=== PATIENT | female | born 1950 | race Caucasian/White ===

== ENCOUNTER → 2016-09-18 | Outpatient (CLI) | payer MEDICARE, OTHER ==
[~2016-09-18] MED LIST: ALEVE220 M1 PO; ASPIRIN CHEWABL81 MG PO; CALCIUM + VITA1 EACH PO; ELIQUIS5 MG PO; LEVAQUIN500 MG PO; LIPITOR TAB 2020 MG PO; LISINOPRIL2.5 MG PO; LOPRESSOR 25 MG25 MG PO; MULTAQ400 MG PO; MULTIVITAMINS1 EAC1 PO; SYNTHROID25 MCG PO; TYLENOL W/CODEIN1 E1 PO; ZOLOFT100 MG PO
== END ==
LOC: CARD REHAB 14:00
DX: Z48.812 Encounter for surgical aftercare following surgery on the circulatory system (principal)

== ENCOUNTER → 2016-09-19 | Outpatient (CLI) | payer MEDICARE, OTHER | LOC: HEART 5 09:04 | DX: Z79.899 Other long term (current) drug therapy (principal) | CPT/HCPCS: 94010; 94729 ==

== ENCOUNTER → 2016-11-23 | Outpatient (CLI) | payer MEDICARE, OTHER | LOC: RAD 15:53 | DX: M25.552 Pain in left hip (principal); M89.8X5 Other specified disorders of bone, thigh | CPT/HCPCS: 73502; 73552 ==

== ENCOUNTER → 2020-09-01 | Outpatient (CLI) | payer MEDICARE, OTHER ==
[~2020-09-01] MED LIST changes: +CEFDINIR300 MG PO; +CELEBREX200 MG PO; +CORDARONE 200M200 MG PO; +ECOTRIN81 MG PO; +ELIQUIS 5 MG TAB5 MG PO; +FLEXERIL 10 MG10 MG PO; +GLUCOPHAGE500 MG PO; +LOPRESSOR50 MG PO; +MICROZIDE12.5 MG PO; +PRINIVIL20 MG PO; +SYNTHROID75 MCG PO
== END ==
LOC: EXRD 13:54
DX: R22.1 Localized swelling, mass and lump, neck (principal)
CPT/HCPCS: 76536

== ENCOUNTER → 2020-09-16 | Outpatient (CLI) | payer MEDICARE, OTHER | LOC: CT 08:04 | DX: R22.1 Localized swelling, mass and lump, neck (principal) | CPT/HCPCS: 70491; Q9967 ==

== ENCOUNTER 2020-10-11 11:59 | Emergency (ER) | payer MEDICARE, OTHER ==
[~2020-10-11 11:59] MED LIST changes: -CEFDINIR300 MG PO
[2020-10-11 14:42] LABS: HEMOGLOBIN 13.5 gm/dl (12.3-15.3); RED BLOOD COUNT 4.52 M/UL (4.00-5.10); WHITE BLOOD COUNT 8.7 K/UL (4.5-11.0)
[2020-10-11] MEDS ORDERED: CEFDINIR300 MG PO (17:32)
== END 2020-10-11 17:40 | disposition home or self-care (01) ==
LOC: ER1 11:59
PROVIDERS: Physician Assistant
DX: J18.9 Pneumonia, unspecified organism (principal); R31.0 Gross hematuria; E11.9 Type 2 diabetes mellitus without complications; I10 Essential (primary) hypertension; I48.91 Unspecified atrial fibrillation; E03.9 Hypothyroidism, unspecified; F17.210 Nicotine dependence, cigarettes, uncomplicated; Z90.49 Acquired absence of other specified parts of digestive tract; Z20.822 Contact with and (suspected) exposure to COVID-19
CPT/HCPCS: 0240U; 80053; 81001; 85025; 85610; 85730; 99284

== ENCOUNTER → 2021-01-17 | Outpatient (CLI) | payer MEDICARE, OTHER ==
[~2021-01-17] MED LIST changes: +CEFDINIR300 MG PO
== END ==
LOC: HEART 5 12:43
DX: I50.22 Chronic systolic (congestive) heart failure (principal); I42.0 Dilated cardiomyopathy; I08.1 Rheumatic disorders of both mitral and tricuspid valves
CPT/HCPCS: 93306

== ENCOUNTER → 2021-01-27 | Outpatient (CLI) | payer MEDICARE, OTHER | LOC: HEART 5 09:35 | DX: R06.02 Shortness of breath (principal); Z79.899 Other long term (current) drug therapy; R94.2 Abnormal results of pulmonary function studies | CPT/HCPCS: 94060; 94729 ==

== ENCOUNTER → 2021-03-10 | Outpatient (CLI) | payer MEDICARE, OTHER | LOC: US 13:02 | DX: J18.9 Pneumonia, unspecified organism (principal); R68.89 Other general symptoms and signs | CPT/HCPCS: 71046; 93925 ==

== ENCOUNTER → 2021-06-08 | Outpatient (CLI) | payer MEDICARE, OTHER | LOC: HEART 5 09:21 | DX: R06.02 Shortness of breath (principal); Z79.899 Other long term (current) drug therapy | CPT/HCPCS: 94010; 94729 ==

== ENCOUNTER 2022-01-04 18:21 | Inpatient (IN) | payer MEDICARE, OTHER ==
[~2022-01-04] VITALS: Ht 162.6 cm; Wt 118.1 kg
[~2022-01-04 18:21] MED LIST changes: +AMIODARONE HCL200 MG PO; -CORDARONE 200M200 MG PO; -GLUCOPHAGE500 MG PO; +HYDROCHLOROTH12.5 MG PO; +LISINOPRIL40 MG PO; +METFORMIN HCL500 M2 PO; -MICROZIDE12.5 MG PO; -PRINIVIL20 MG PO; +SYNTHROID50 MCG PO; -SYNTHROID75 MCG PO
[2022-01-04 19:33] LABS: BORDETELLA PARAPERTUSSIS Not Detected (Not Detectd); BORDETELLA PERTUSSIS Not Detected (Not Detectd); CHLAMYDIA PNEUMONIAE Not Detected (Not Detectd); CORONAVIRUS HKU1 Not Detected (Not Detectd); CORONAVIRUS NL63 Not Detected (Not Detectd); CORONAVIRUS OC43 Not Detected (Not Detectd); CORONOAVIRUS 229E Not Detected (Not Detectd); HUMAN METAPNEUMOVIRUS Not Detected (Not Detectd); HUMAN RHINOVIRUS/ENTEROVIRUS Not Detected (Not Detectd); INFLUENZA A Not Detected (Not Detectd); INFLUENZA B Not Detected (Not Detectd); MYCOPLASMA PNEUMONIAE Not Detected (Not Detectd); PARAINFLUENZA VIRUS 1 Not Detected (Not Detectd); PARAINFLUENZA VIRUS 2 Not Detected (Not Detectd); PARAINFLUENZA VIRUS 3 Not Detected (Not Detectd); PARAINFLUENZA VIRUS 4 Not Detected (Not Detectd); RESPIRATORY SYNCYTIAL VIRUS Not Detected (Not Detectd)
[2022-01-04 19:38] LABS: HEMOGLOBIN 12.8 gm/dl (12.3-15.3); RED BLOOD COUNT 4.24 M/UL (4.00-5.10); WHITE BLOOD COUNT 7.9 K/UL (4.5-11.0)
[2022-01-04 20:14] LABS: BUN/CREATININE RATIO 17 (0-10)
[2022-01-04 20:28] LABS: SARS-CoV-2 NOT DETECTED (Not Detectd)
[2022-01-05 06:44] LABS: HEMOGLOBIN 13.2 gm/dl (12.3-15.3); RED BLOOD COUNT 4.34 M/UL (4.00-5.10); WHITE BLOOD COUNT 6.3 K/UL (4.5-11.0)
[2022-01-05 07:13] LABS: BUN/CREATININE RATIO 21 (0-10)
[2022-01-05] MEDS ORDERED: TRAZODONE HCL100 MG PO (10:02)
[2022-01-05] MEDS ORDERED: MULTIVITAMIN1 EACH PO (10:03)
[2022-01-05] MEDS ORDERED: GABAPENTIN300 MG PO (10:03)
[2022-01-05] MEDS ORDERED: FLUOXETINE HCL40 MG PO (10:03)
[2022-01-05] MEDS ORDERED: CALTRATE 600 +1 EAC1 PO (10:04)
[2022-01-05] MEDS ORDERED: TYLENOL EXTRA500 MG PO (10:04)
[2022-01-05] MEDS ORDERED: SYNTHROID25 MCG PO (10:06)
[2022-01-06 06:20] LABS: HEMOGLOBIN 13.7 gm/dl (12.3-15.3); RED BLOOD COUNT 4.47 M/UL (4.00-5.10)
[2022-01-06 06:25] LABS: WHITE BLOOD COUNT 10.4 K/UL (4.5-11.0)
[2022-01-06 07:05] LABS: BUN/CREATININE RATIO 26 (0-10)
--- NOTE | 2022-01-06 12:24 | NUR ---
patient have episode of n/v and reported to dr. stewart received order
[2022-01-07 05:54] LABS: HEMOGLOBIN 14.2 gm/dl (12.3-15.3); RED BLOOD COUNT 4.66 M/UL (4.00-5.10); WHITE BLOOD COUNT 8.3 K/UL (4.5-11.0)
[2022-01-07 06:17] LABS: BUN/CREATININE RATIO 23 (0-10)
[2022-01-08 06:34] LABS: HEMOGLOBIN 14.1 gm/dl (12.3-15.3); RED BLOOD COUNT 4.67 M/UL (4.00-5.10); WHITE BLOOD COUNT 7.5 K/UL (4.5-11.0)
[2022-01-08 06:53] LABS: BUN/CREATININE RATIO 26 (0-10)
[2022-01-08] MEDS ORDERED: FUROSEMIDE40 MG PO (08:37)
--- NOTE | 2022-01-08 10:14 | NUR ---
manager language Julia said patient does not need home health due to PT recommending home with support. She also does not need home O2 after oxgen saturation is 92% on room air.
== END 2022-01-08 11:14 | disposition home or self-care (01) | DRG 291 ==
LOC: ER1 18:21 → MED SURG 4 21:05 → CDU 21:05 → MED SURG 4 23:30
PROVIDERS: Internal Medicine; Preventive Medicine Occupational Medicine; ADMIT Internal Medicine
PROC: B24BZZZ Ultrasonography of Heart with Aorta (ICD-10-PCS; principal; 2022-01-05)
DX: I11.0 Hypertensive heart disease with heart failure (principal); I50.33 Acute on chronic diastolic (congestive) heart failure; J96.01 Acute respiratory failure with hypoxia; E87.6 Hypokalemia; Z20.822 Contact with and (suspected) exposure to COVID-19; E11.9 Type 2 diabetes mellitus without complications; E03.9 Hypothyroidism, unspecified; F32.A Depression, unspecified; E66.01 Morbid (severe) obesity due to excess calories; G47.00 Insomnia, unspecified; I34.0 Nonrheumatic mitral (valve) insufficiency; I48.0 Paroxysmal atrial fibrillation; F41.9 Anxiety disorder, unspecified; G47.33 Obstructive sleep apnea (adult) (pediatric); E78.5 Hyperlipidemia, unspecified; Z79.4 Long term (current) use of insulin; Z79.82 Long term (current) use of aspirin; Z95.0 Presence of cardiac pacemaker; Z90.3 Acquired absence of stomach [part of]; Z83.3 Family history of diabetes mellitus; Z79.01 Long term (current) use of anticoagulants
CPT/HCPCS: ECHO; 36415; 36600; 71045; 80048; 80053; 80061; 81001; 82550; 82553; 82803; 82962; 83036; 83605; 83690; 83735; 83880; 84132; 84439; 84443; 84484; 85025; 85027; 85652; 86140; 87040; 87633; 93005; 93306; 94664; 94760; 96374; 96375; 97110; 97161; 97165; 99285; J0696; J1940; J2930

== ENCOUNTER 2022-03-12 11:28 | Emergency (ER) | payer MEDICARE, OTHER ==
[~2022-03-12 11:28] MED LIST changes: +CALTRATE 600 +1 EAC1 PO; +FLUOXETINE HCL40 MG PO; +FUROSEMIDE40 MG PO; +GABAPENTIN300 MG PO; +MULTIVITAMIN1 EACH PO; +TRAZODONE HCL100 MG PO; +TYLENOL EXTRA500 MG PO
[2022-03-12 13:12] LABS: HEMOGLOBIN 11.3 gm/dl (12.3-15.3); RED BLOOD COUNT 3.78 M/UL (4.00-5.10)
[2022-03-12 13:46] LABS: BUN/CREATININE RATIO 21 (0-10)
[2022-03-12] MEDS ORDERED: LASIX20 MG PO (14:55)
[2022-03-13] MEDS ORDERED: FLUOXETINE HCL40 MG PO (19:06)
[2022-03-13] MEDS ORDERED: FUROSEMIDE40 MG PO (19:06)
[2022-03-13] MEDS ORDERED: MELATONIN3 MG PO (19:07)
== END 2022-03-12 15:45 | disposition home or self-care (01) ==
LOC: ER1 11:28
PROVIDERS: Nurse Practitioner
DX: I11.0 Hypertensive heart disease with heart failure (principal); I50.9 Heart failure, unspecified; S60.222A Contusion of left hand, initial encounter; E11.9 Type 2 diabetes mellitus without complications; G47.30 Sleep apnea, unspecified; E66.9 Obesity, unspecified; Z95.0 Presence of cardiac pacemaker; Z90.49 Acquired absence of other specified parts of digestive tract; X58.XXXA Exposure to other specified factors, initial encounter
CPT/HCPCS: 71045; 73130; 80053; 82550; 82553; 83880; 84484; 85025; 93005; 96374; 99285; J1940

== ENCOUNTER 2022-03-13 15:08 | Inpatient (IN) | payer MEDICARE, OTHER ==
[~2022-03-13] VITALS: Ht 154.9 cm; Wt 114.0 kg
[~2022-03-13 15:08] MED LIST changes: +LASIX20 MG PO
[2022-03-13 15:38] LABS: HEMOGLOBIN 11.6 gm/dl (12.3-15.3); RED BLOOD COUNT 3.95 M/UL (4.00-5.10)
[2022-03-13 15:41] LABS: WHITE BLOOD COUNT 10.9 K/UL (4.5-11.0)
[2022-03-13] MEDS ORDERED: FLUOXETINE HCL40 MG PO (19:06)
[2022-03-13] MEDS ORDERED: FUROSEMIDE40 MG PO (19:06)
[2022-03-13] MEDS ORDERED: MELATONIN3 MG PO (19:07)
[2022-03-14 01:30] LABS: HEMOGLOBIN 10.7 gm/dl (12.3-15.3); WHITE BLOOD COUNT 8.5 K/UL (4.5-11.0)
[2022-03-14 01:51] LABS: BUN/CREATININE RATIO 22 (0-10)
[2022-03-14 02:09] LABS: RED BLOOD COUNT 3.27 M/UL (4.00-5.10)
[2022-03-15 02:10] LABS: HEMOGLOBIN 10.8 gm/dl (12.3-15.3); RED BLOOD COUNT 3.49 M/UL (4.00-5.10); WHITE BLOOD COUNT 8.3 K/UL (4.5-11.0)
[2022-03-18 01:59] LABS: RED BLOOD COUNT 3.61 M/UL (4.00-5.10); WHITE BLOOD COUNT 7.6 K/UL (4.5-11.0)
[2022-03-20 09:00] LABS: HEMOGLOBIN 11.9 gm/dl (12.3-15.3); RED BLOOD COUNT 3.9 M/UL (4.00-5.10); WHITE BLOOD COUNT 6.3 K/UL (4.5-11.0)
--- NOTE | 2022-03-20 11:19 | NUR ---
PTS CHARTING REVIEWED BY RADHA NARVAEZ RN
[2022-03-20] MEDS ORDERED: K-TAB ER10 MEQ PO (11:52)
[2022-03-20] MEDS ORDERED: OMNICEF 300 MG300 MG PO (11:52)
[2022-03-20] MEDS ORDERED: COMBIVENT RESPIM4 GM INH (12:39)
== END 2022-03-20 14:42 | disposition home health service (06) | DRG 291 ==
LOC: ER1 15:08 → CDU 16:31 → PROG CARE 16:31 → M/S 03-19 17:53
PROVIDERS: Family Medicine; Internal Medicine; Internal Medicine Pulmonary Disease; Physician Assistant; ADMIT Internal Medicine Infectious Disease
PROC: 5A09357 Assistance with Respiratory Ventilation, Less than 24 Consecutive Hours, Continuous Positive Airway Pressure (ICD-10-PCS; principal; 2022-03-13)
PROC: 5A09357 Assistance with Respiratory Ventilation, Less than 24 Consecutive Hours, Continuous Positive Airway Pressure (ICD-10-PCS; 2022-03-14)
PROC: 5A09357 Assistance with Respiratory Ventilation, Less than 24 Consecutive Hours, Continuous Positive Airway Pressure (ICD-10-PCS; 2022-03-19)
DX: I11.0 Hypertensive heart disease with heart failure (principal); I50.33 Acute on chronic diastolic (congestive) heart failure; J96.01 Acute respiratory failure with hypoxia; N17.9 Acute kidney failure, unspecified; Z68.42 Body mass index [BMI] 45.0-49.9, adult; N30.00 Acute cystitis without hematuria; G47.33 Obstructive sleep apnea (adult) (pediatric); I48.0 Paroxysmal atrial fibrillation; I49.5 Sick sinus syndrome; T50.2X5A Adverse effect of carbonic-anhydrase inhibitors, benzothiadiazides and other diuretics, initial encounter; E78.5 Hyperlipidemia, unspecified; E11.9 Type 2 diabetes mellitus without complications; E03.9 Hypothyroidism, unspecified; E87.6 Hypokalemia; R53.81 Other malaise; J40 Bronchitis, not specified as acute or chronic; F41.9 Anxiety disorder, unspecified; L89.322 Pressure ulcer of left buttock, stage 2; L89.312 Pressure ulcer of right buttock, stage 2; E66.01 Morbid (severe) obesity due to excess calories; Z79.01 Long term (current) use of anticoagulants; Z79.82 Long term (current) use of aspirin; Z95.0 Presence of cardiac pacemaker; Z90.49 Acquired absence of other specified parts of digestive tract; Z82.49 Family history of ischemic heart disease and other diseases of the circulatory system; Z81.1 Family history of alcohol abuse and dependence; Z83.3 Family history of diabetes mellitus; Z80.9 Family history of malignant neoplasm, unspecified
CPT/HCPCS: 36415; 36600; 51702; 71045; 80048; 80053; 81001; 82550; 82553; 82803; 82962; 83605; 83735; 83880; 84132; 84484; 85025; 85027; 86140; 87040; 87086; 93005; 94640; 94660; 94760; 96374; 96375; 97110; 97116-GP-CQ; 97161; 97166; 97530; 97535; 99285; J0692; J1205; J1940; J2405; J3475; P9047; U0002